=== PATIENT | female | born 1950 | race Caucasian/White ===

== ENCOUNTER 2019-12-21 11:11 | Emergency (ER) | payer MEDICARE ==
--- OUTSIDE RECORDS SUMMARY | 2019-12-21 11:19 | XMS REPORT | Continuity of Care Document ---
:1950 External Reference #:[id number] Author Name Shara Frankel M.D. Address [address] [place] [address] Care Team Providers Name Role Phone Shara Frankel M.D. 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 Onset: 09/28/2014 Moderate recurrent major depression Shara Frankel M.D. Onset: 09/28/2014 Social History Type Date Description Comments Sex Unknown Tobacco Use Start: Unknown Never Smoked Cigarettes ETOH Use Consumes 1 glass of wine per day Tobacco Use Start: Unknown Patient has never smoked Smoking Status Reviewed: 12/07/19 Patient has never smoked Exercise Type/Frequency Exercises regularly 3-5 mi daily Allergies, Adverse Reactions, Alerts Active Allergies Reaction Severity Comments Date Codeine hallucinations 09/28/2014 Medications Active Medications SIG Qnty Indications Ordering Provider Date Sucralfate 1 tab by mouth 30tabs 789.06 Shara Frankel, 12/07/2019 1gm Tablets before meals and M.D. at bedtime prn Zoloft 1 by mouth every 90tabs Shara Frankel, 09/10/2017 100mg Tablets day (brand only) M.D. Dicyclomine HCL 1 by mouth four 30tabs Shara Frankel, 01/11/2017 20mg times a day as M.D. Tablets needed Multivitamin Adult 1 by mouth every Unknown day Tablets Immunizations CPT Code Status Date Vaccine Lot # [id number] Given 12/07/2019 Pneumococcal Immunization [id number] Given 09/11/2019 Influenza Vac, Quadriv[place], [place] [id number] Given 12/03/2018 Pneumococcal Conjugate Vacc-13 [id number] Given 08/27/2018 High-Dose, Influenza Virus Vacccine-fluzone 65 and older [id number] Given 09/10/2017 High-Dose, Influenza Virus Vacccine-fluzone 65 and [id number] older [id number] Given 08/29/2016 Influenza vac quadrivalent preservative free 6 months and up Vital Signs Date Vital Result Comment 12/07/2019 1:31pm BP Systolic 116 mmHg BP Diastolic 80 mmHg Heart Rate 72 /min Body Temperature 97.9 F Respiratory Rate 18 /min Height 62 inches 5'2" Weight 118.00 lb BMI (Body Mass Index) 21.6 kg/m2 12/03/2018 10:15am BP Systolic 142 mmHg BP Diastolic 72 mmHg BP Systolic Recheck 140 mmHg BP Diastolic Recheck 78 mmHg Heart Rate 68 /min Body Temperature 97.9 F Respiratory Rate 16 /min Height 62.5 inches 5'2.50" Weight 120.00 lb BMI (Body Mass Index) 21.6 kg/m2 Results Test Acquired Date Facility Test Result H/L Range Note Laboratory test 06/15/2019 [facility] Cologuard Negative Not Applicable [address] [place], [place] [id number] [phone] A negative result indicates a low likelihood that a colorectal cancer (CRC) or an advanced adenoma (adenomatous polyps with more advanced pre-malignant features) is present. The chance that a person wit h a negative Cologuard test has a colorectal cancer is less than 1 in 1500 ( negative predictive value >99.9%) or has an advanced adenoma is less than 5.3% ( negative predictive value 94.7%). These michela a are based on a prospective cross-sectional screening study of 10,000 individuals at average risk for colorectal cancer who were screened with both Cologuard and colonoscopy. (Varsha Landry al, N Eng l J Med 2014;370(14):2386-8618) COLOGUARD RE-SCREENING RECOMMENDATION: Periodic routine colorectal cancer screening is an important part of preventive healthcare for asymptomatic persons at average risk for colorectal cancer. Following a negative Cologuard result, the [employer] [employer] and U.S. Multi-Society Task Force screening guidelines recommend a Cologuard re-screening interval of 3 years. References: [employer] (ACS). Colorectal cancer prevention and early detection. [place], [place]: [employer]; [updated 2015Mar 11]. https://www.cancer.org/cancer/czscd-ubkrob-vdumz r/yeccpjurt-qppkvamhh-ircdjsn/acs-recommendations.html. Accessed July 18, 2018; David DK, Mery PALM, Gabriella HidalgoK, Colorectal Cancer Screening: Recommendations for Physicians and Patients from the U.S. M ulti-Society Task Force on Colorectal Cancer Screening, Am J Gastroenterology 2017; 112:4012-9318. Test Type: Composite algorithmic analysis of stool DNA-biomarkers with hemoglobin immunoassay. Quantitative values of individual biomarkers are not reportable and are not associated with individual biomarker result reference ranges. Precautions and Limitations: Cologuard is intended for colorectal cancer screening of adults of either sex, 50 years or older, who are at typical average-risk for colorectal cancer. A negative C ologuard test result does not guarantee the absence of colorectal cancer or advanced adenoma (pre-cancer). Patients with a negative Cologuard test result should be advised to continue participating in a colorectal cancer screening program. Cologuard may produce a positive result , even though a colonoscopy may not find colorectal cancer or precancerous polyps. The performance of Cologuard has been esta blished in a cross sectional study (i.e., single point in time). Performance has not been evaluated in adults who have been previously tested with Cologuard or in patients less than 50 years of age. Col oguard has been approved for use by the U.S. FDA. Cologuard performance data in a 10,000 patient pivotal study using colonoscopy as the reference method can be accessed at the following location: www.[employer]/results. Additional description of the Cologuard test process, warnings and precautions can be found at www.cologuardtest.com. Rx Only. Procedures Date Code Description Status 12/15/2018 [id number] Mammogram Completed 08/14/2017 [id number] Mammogram Completed 05/18/2016 [id number] Mammogram Completed 11/18/2010 87364819 Colonoscopy Completed Medical Devices Description No Information Available Encounters Description No Information Available Assessments Date Code Description Provider 12/07/2019 Z00.00 Encounter for general adult medical examination Shara Frankel M.D. without abnormal findings 12/07/2019 F33.1 Major depressive disorder, recurrent, moderate Shara Frankel M.D. 12/07/2019 K58.0 Irritable bowel syndrome with diarrhea Shara Frankel M.D. 12/07/2019 Z23 Encounter for immunization Shara Frankel M.D. Plan of Treatment 12/07/2019 - Shara Frankel M.D.Z00.00 Encounter for general adult medical examination without abnormal findingsNew Labs:CBC Electronic-[facility], Ordered: 12/07/19Comp Metabolic-[facility], Ordered: 12/07/19Lipid Panel- [facility], Ordered: 12/07/19Ua - Non Micro ([facility]), Ordered: 12/07/19TSH ( [facility]), Ordered: 12/07/19New Xrays:Dexa Bone Density Study, Vertebral Fracture Assessment, Ordered: 12/07/19Comments:Encourage an active and healthy lifestyle with proper eating habits including fruits, vegetables, 6-8 glasses of water a day and monitoring portion size. Recommend 30 minutes of daily physical activityincluding walking, aerobic exercise, sports, yoga or dance. Any activity is better than no activity.Recommend routine eye and dental exams. Next physical is due in 1-2 years.F33.1 Major depressive disorder, recurrent, moderateComments:stable on medications; call if symptoms icfltqZ13.0 Irritable bowel syndrome with diarrheaComments:refilled medications, if GI issues return may need to see german garcía 06/[id number] Encounter for immunizationAllNew Medication:Sucralfate 1 gm - 1 tab by mouth before meals and at bedtime prnComments:Medication Management Patient Understands medications she's taking? Yes No Are there Barriers to Adherence? Yes No Has the patient been asked about herbal supplements and therapies, and OTC meds? Yes No Functional Status Description No Information Available Mental Status Description No Information Available Referrals Description No Information Available
--- NOTE | 2019-12-21 12:14 | UC ---
Hand/Wrist HPI - HPI Summary HPI Summary: 69 y/o female presents to the urgent care c/o let forearm and left wrist pain w / swelling and bruise s/p fall last night around 2000PM. Pt reports she slipped on the ice and landed on the lateral side of her left forearm. She has Hx of arthritis. No pain at rest, but w/ movement is 6/10. She took Tylenol PO last night, but didn't applied ice. This morning when she woke up her left forearm was swollen w/ a bruise and more painful. Pt denies numbness or tingling sensation over her left extremity, SOB, chest pain, abdominal pain, N/V /D. She declines pain medication and states she has Tramadol at home in case pain increases. - History Of Current Complaint Chief Complaint: UCUpperExtremity Stated Complaint: HAND AND ARM INJURY Time Seen by Provider: 12/21/19 12:12 Hx Obtained From: Patient Onset/Duration: Sudden Onset, Lasting Days - 1 day, Still Present, Worse Since - today Severity Initially: Moderate Severity Currently: Moderate Pain Intensity: 6 - movement Pain Scale Used: 0-10 Numeric Character Of Pain: Sharp Aggravating Factor(s): Movement, Lifting, Internal/External Rotation Alleviating Factor(s): Rest, OTC Meds - tylenol PO Associated Signs And Symptoms: Positive: Swelling - left forearm, Bruising. Negative: Redness, Fever, Weakness, Numbness/Tingling Related History: Dominant Hand Right - Allergies/Home Medications Allergies/Adverse Reactions: Allergies Allergy/AdvReac Type Severity Reaction Status Date / Time codeine Allergy Hallucinati Verified 12/21/19 11:39 ons Home Medications: Home Medications Sertraline* [Zoloft*] 100 mg PO DAILY 12/21/19 [History Confirmed 12/21/19] PMH/Surg Hx/FS Hx/Imm Hx Previously Healthy: Yes Other Endocrine History: arthritis Psychological History: Depression - Surgical History Surgical History: None - Family History Known Family History: Positive: None - Pt denies FMHx - Social History Occupation: Retired Lives: With Family Alcohol Use: Daily Alcohol Amount: wine/dinner Substance Use Type: None Smoking Status (MU): Never Smoked Tobacco Review of Systems All Other Systems Reviewed And Are Negative: Yes Constitutional: Positive: Negative Skin: Positive: Bruising - left forearm lasteral side w/ bruise and swelling s/ p fall Eyes: Positive: Negative ENT: Positive: Negative Respiratory: Positive: Negative Cardiovascular: Positive: Negative Gastrointestinal: Positive: Negative Genitourinary: Positive: Negative Motor: Positive: Negative Neurovascular: Positive: Negative Musculoskeletal: Positive: Decreased ROM - lefft forearm and wrist, Other: - left forearm, wrist and hand pain s/p fall Neurological: Positive: Negative Psychological: Positive: Negative Is Patient Immunocompromised?: No Physical Exam - Summary Physical Exam Summary: Vital Signs Reviewed: Yes General: Well-Appearing, No Pain Distress, Well-Nourished thin female w/o any apparent distress Eyes: Positive: Conjunctiva Clear - PERRLA, EOMI ENT: Positive: Normal ENT inspection, Hearing grossly normal, Pharynx normal, TMs normal, Uvula midline Neck: Positive: Supple, Nontender, No Lymphadenopathy Respiratory: Positive: Chest non-tender, Lungs clear, Normal breath sounds, No respiratory distress Cardiovascular: Positive: RRR, No Murmur, Pulses Normal, Brisk Capillary Refill Abdomen Description: Positive: Nontender, No Organomegaly, Soft. Negative: CVA Tenderness (R), CVA Tenderness (L) Bowel Sounds: Positive: Present Musculoskeletal: Positive: Strength Intact, Other: Neurological Exam: Normal Musculoskeletal: Positive: Left extremity. the L forearm and wrist is mild deformity on the ulnar side when compared to the L wrist. Pt w/ left First MCPJ w/ deformity due to possible arthritis. No open wounds, moderated soft tissue swelling over marko ulnar side and echymosis. No overlying erythema or warmth. No bony crepitus. NO Point tenderness over the thenar eminence and ventral side of wrist. No scaphoid fullness or tenderness to direct palpation or axial load. Point tenderness over the ulnar side of left wrist and left forearm. Decreased ROM due to pain. Motor/sensory function of ulnar, radial, median nerves intact. Ulnar and radial pulses intact. Psychological Exam: Normal Skin Exam: Normal Triage Information Reviewed: Yes Vital Signs: Initial Vital Signs Temp 98.5 F 12/21/19 11:32 Pulse 75 12/21/19 11:32 Resp 16 12/21/19 11:32 BP 130/70 12/21/19 11:32 Pulse Ox 100 12/21/19 11:32 Hand/Wrist Course/Dx - Course Course Of Treatment: 69 y/o female presents to the urgent care c/o let forearm and left wrist pain w / swelling and bruise s/p fall last night around 2000PM. Pt reports she slipped on the ice and landed on the lateral side of her left forearm. She has Hx of arthritis. No pain at rest, but w/ movement is 6/10. She took Tylenol PO last night, but didn't applied ice. This morning when she woke up her left forearm was swollen w/ a bruise and more painful. Pt denies numbness or tingling sensation over her left extremity, SOB, chest pain, abdominal pain, N/V /D. She declines pain medication and states she has Tramadol at home in case pain increases. Hx obtained. LF wrist, forearm and hand X-ray ordered. FINDINGS : There is soft tissue swelling adjacent to the distal radius and ulna. The bones are osteopenic. There is a transverse slightly comminuted fracture of the distal radial metaphysis. The fracture fragments are impacted. No additional fracture is seen. IMPRESSION: SLIGHTLY COMMINUTED IMPACTED FRACTURE OF THE DISTAL RADIAL METAPHYSIS. NO ADDITIONAL FRACTURE IS SEEN as per radiologist. Pt s symptoms discussed w/ Dr Hinson and he recommends a sugar tongue splint and f /u w/ Orthopedic. Pt wrist immobilized with sugar tongue splint by me. Pt w/ no neurovascular compromise intact after splinting Advised RICE: Rest, Ice, elevation, contineut taking Tylenol PO or tramadol for pain and swelling. Pt w/ in good alignment and the pt had good sensation and capillary refill at the time of discharge. Pt advised to f/u w/ Orthopedic Dr Calvillo in 1-2 days for further management in her wrist fracture. D/c instructions explained. Pt understood and agreed w/ plan of care. - Differential Dx/Diagnosis Differential Diagnosis/HQI/PQRI: Contusion, Fracture, Sprain, Strain, Tendonitis Provider Diagnosis: Fracture of radius, distal, left, closed, Left wrist injury Discharge ED - Sign-Out/Discharge Documenting (check all that apply): Patient Departure - D/C home All imaging exams completed and their final reports reviewed: Yes - Discharge Plan Condition: Stable Disposition: HOME Patient Education Materials: Wrist Fracture in Adults (ED) Referrals: Shara Frankel MD [Primary Care Provider] - 1 Day Herman Calvillo MD [Medical Doctor] - 1 Day Additional Instructions: 1-Please continue taking Tykenol PO and tramadol you have at home to alleviate take medications as directed to alleviate pain and swelling. 2-Please apply ice, keep your wrist immobilized with the splint and shoulder sling. Avoid heavy lifting. 3- Please f/u with Orthopedic Dr calvillo in 1-2 days for further management in your wrist fracture - Billing Disposition and Condition Condition: STABLE Disposition: Home
[2019-12-21 14:09] VITALS: BP 151/83
== END 2019-12-21 14:05 | disposition home or self-care (01) ==
LOC: UCEAST 11:11
DX: S52.502A Unspecified fracture of the lower end of left radius, initial encounter for closed fracture (principal); S69.92XA Unspecified injury of left wrist, hand and finger(s), initial encounter; F32.9 Major depressive disorder, single episode, unspecified; Z88.5 Allergy status to narcotic agent; Z79.899 Other long term (current) drug therapy; W00.0XXA Fall on same level due to ice and snow, initial encounter; Y92.9 Unspecified place or not applicable
CPT/HCPCS: 99213; G0463